=== PATIENT | female | born 1980 | race Caucasian/White ===

== ENCOUNTER 2017-06-14 09:31 | Emergency (ER) | payer SELFPAY ==
[~2017-06-14] VITALS: Ht 170.2 cm; Wt 72.0 kg
[2017-06-14 09:32] VITALS: BP 126/72; PULSE 76; RESP 18; TEMP 98.7; O2SAT 99
[2017-06-14] MEDS ORDERED: IBUPROFEN 800 MG TAB PO ONE (09:45)
--- NOTE | 2017-06-14 10:04 | PD ---
HPI Chief Complaint: Pain: Acute or Chronic Time Seen by Provider: 09:47 Travel History International Travel<30 days: No Contact w/Intl Traveler<30days: No Traveled to known affect area: No History of Present Illness HPI 37-year-old female presents to the emergency Department with complaint of left thumb pain 5 days. Unknown injury. Reports an area of reddening over the thumb joint. Reports itching and a hardened lump to the reddened area. Reports decreased range of motion and swelling of the thumb. Denies fever, vomiting. Denies paresthesias, loss of sensation to the affected finger. Has been taking ibuprofen and Tylenol for symptom management. Reports seeing up-to- date on tetanus vaccination. Allergies to clindamycin, Levaquin, penicillin. Has no other medical complaints. No other modifying factors or associated signs and symptoms. PFSH Past Medical History ?: Not LMP: 05/2017 Social History Tobacco Use: No Allergies-Medications (Allergen,Severity, Reaction): Coded Allergies: Clindamycin (Verified Allergy, Severe, Anaphylaxis, 06/14/17) Levaquin (Verified Allergy, Severe, Anaphylaxis, 06/14/17) Penicillin (Verified Allergy, Severe, Anaphylaxis, 06/14/17) Reported Meds & Prescriptions Reported Meds & Active Scripts Active Ibuprofen 800 Mg Tab 800 Mg PO Q6HR PRN Deltasone (Prednisone) 20 Mg Tab 40 Mg PO DAILY 5 Days Doxycycline Hyclate 100 Mg Cap 100 Mg PO BID 10 Days Review of Systems Except as stated in HPI: all other systems reviewed are Neg Physical Exam Narrative GENERAL: Well-nourished, well-developed female patient, in no acute distress SKIN: Warm and dry. HEAD: Atraumatic. Normocephalic. EYES: Pupils equal and round. No scleral icterus. No injection or drainage. ENT: Mucosa pink and moist. Airway patent. NECK: Trachea midline. CARDIOVASCULAR: Regular rate. RESPIRATORY: No accessory muscle use. GASTROINTESTINAL: Flat. MUSCULOSKELETAL: Left thumb edematous and with a small area of erythema, without fluctuance, over the dorsal aspect of the PIP joint, possibly consistent with a bug bite; no open wound or drainage noted; thumb is with decreased range of motion; sensory intact; less than 3 second cap refill; no pain to the base of the thumb or thenar eminence area; no hand edema or erythema ; no lymphangitis. Left upper extremity is supple and nontender 2+ radial pulses and sensory intact and without erythema or edema. No obvious deformities. No clubbing. No cyanosis. No edema. NEUROLOGICAL: Awake and alert. Oriented 3. No obvious cranial nerve deficits. Motor grossly within normal limits. Normal speech. PSYCHIATRIC: Appropriate mood and affect; insight and judgment normal. Data Data Last Documented VS Vital Signs Date Time Temp Pulse Resp B/P Pulse Ox O2 Delivery O2 Flow Rate FiO2 06/14/17 10:05 80 18 06/14/17 09:32 98.7 126/72 99 Room Air Orders Finger ([id number]) (06/14/17 ) Ibuprofen (Motrin) (06/14/17 09:45) MDM Medical Decision Making Medical Screen Exam Complete: Yes Emergency Medical Condition: Yes Medical Record Reviewed: Yes Differential Diagnosis Cellulitis, insect bite, arthritis, tenosynovitis, less likely septic joint Narrative Course 37-year-old female with left thumb pain and swelling. Unknown injury. There is an area to the dorsal aspect of the thumb that appears like a possible insect bite with reddening. The patient is able to flex the thumb minimally secondary to pain. There is no fluctuance, wound or drainage from the reddened area. She also states that reddened area is itchy. Patient is afebrile and nontoxic-appearing. Denies fever, vomiting. Up-to-date on tetanus vaccination. Left thumb x-ray ordered. Ibuprofen ordered. 1059: Left thumb x-ray concludes: Last 24 hours Impressions Finger X-Ray 06/14/17 0000 Signed Impressions: Service Date/Time: Wednesday, June 14, 2017 10:04 - CONCLUSION: Nonspecific soft tissue calcifications adjacent to the first interphalangeal joint with adjacent swelling of uncertain etiology. The calcifications could be chronic. Alexandro Ann MD Tristan bandage provided for compression and support. I will treat the patient for possible cellulitis and insect bite with doxycycline and Deltasone. Doxycycline , Deltasone, ibuprofen prescribed for home. Instructed patient to follow up with primary care provider. Patient verbalizes understanding and agreement with treatment plan. Patient is medically cleared and stable for discharge. Discussed reasons to return to the emergency department. Patient agrees with treatment plan. The patients vital signs are stable and the patient is stable for outpatient follow-up and treatment. Patient discharged home, stable and in no acute distress. Diagnosis Primary Impression: Pain of left thumb Additional Impression: Swelling of left thumb Referrals: Primary Care Physician Patient Instructions: Cellulitis (ED), General Instructions, Insect Bite or Sting (ED) Departure Forms: Tests/Procedures, Work Release Enter return to work date: Jun 17, 2017 Additional Instructions: Antibiotics as prescribed Oral steroids as prescribed Benadryl as directed and as needed for itching Ibuprofen or Tylenol as directed and as needed for pain and inflammation Ice and/or heat to affected area to reduce pain and inflammation Follow-up with primary care provider Return to the emergency department immediately with worsening of symptoms Med/Other Pt SpecificInfo: Prescription(s) given Scripts Ibuprofen 800 Mg [id number] Mg PO Q6HR PRN (PAIN) #30 TAB Ref 0 Prov:Emi Haas 06/14/17 Prednisone (Deltasone)20 Mg Tab40 Mg PO DAILY 5 Days Ref 0 Prov:Emi Haas 06/14/17 Doxycycline Hyclate 100 Mg [id number] Mg PO BID 10 Days Ref 0 Prov:Emi Haas 06/14/17 Disposition: 01 DISCHARGE HOME Condition: Stable Emi Haas Jun 14, 2017 10:04
[2017-06-14] MEDS ORDERED: PRED-503 PO (10:32)
[2017-06-14] MEDS ORDERED: IBUP800T23 PO (10:32)
[2017-06-14] MEDS ORDERED: DOXY100C PO (10:32)
--- NOTE | 2017-06-14 10:56 | RADRPT ---
EXAM DATE/TIME: 06/14/2017 10:04 [facility] COMPARISON: No previous studies available for comparison. INDICATIONS : Left first digit pain for 5 days post insect bite. MEDICAL HISTORY : None. SURGICAL HISTORY : None. ENCOUNTER: Initial ACUITY: 4 - 6 days PAIN SCORE: 8/10 LOCATION: Left First digit FINDINGS: No definite fractures, or dislocations are identified. No definite lytic or sclerotic lesion is seen . The joint spaces are well maintained. there is slight area of amorphous calcification in the soft tissues adjacent to the first interphalangeal joint. CONCLUSION: Nonspecific soft tissue calcifications adjacent to the first interphalangeal joint with a djacent swelling of uncertain etiology. The calcifications could be chronic. Alexandro Ann MD on June 14, 2017 at 10:53 Board Certified Radiologist. This report was verified electronically.
== END 2017-06-14 11:06 | disposition home or self-care (01) ==
LOC: NEPK 09:31
DX: M79.645 Pain in left finger(s) (principal); M79.89 Other specified soft tissue disorders
CPT/HCPCS: 73140; 99284